=== PATIENT | female | born 1935 | race Caucasian/White ===

== ENCOUNTER → 2016-07-16 | Outpatient (CLI) | payer OTHER ==
[~2016-07-16] MED LIST: ALPR-411 PO; B-COTAB18; BIOT1CAP3; BUME0.5T3 PO; CHLO-274 PO; CRD2 PO; DICL1GEL28 TOP; DIGO0.1219 PO; LOPE2TAB74; LOSA100T65 PO; MULT-513 PO; RFM300 PO; SNG10 PO; TOPI100T34 PO; TOPI50TA16 PO; VTMD1000 PO; WARF-280 PO
--- NOTE | 2016-07-16 12:05 | DIAGNOSTIC IMAGING REPORT ---
MRI OF THE CERVICAL SPINE WITHOUT IV CONTRAST CLINICAL HISTORY: Neck pain and cervical radiculopathy. COMPARISON STUDY: No priors. TECHNIQUE: MRI of the cervical spine is performed utilizing various T1 and T2-weighted sequences in the axial and sagittal planes. IV contrast was not administered for this examination. FINDINGS: Cervical spine: Vertebral body height is maintained throughout the cervical spine. There is minimal anterolisthesis at C7-T1. Alignment is otherwise preserved. There is straightening of the cervical lordosis. The atlantodental articulation appears preserved. The spinous processes are intact as visualized. Small anterior osteophytes are seen at C5-C7. No destructive bony lesion is seen. Intervertebral discs: There is degenerative disc desiccation seen throughout the cervical spine. There is moderate loss of height at C5-C6 and C6-C7. Minimal fluid within the C3-C4 disc is likely on a degenerative basis. Spinal cord: The cervical spinal cord is normal in morphology and signal intensity. C2-C3: Mild facet arthropathy is of no consequence. The central canal is widely patent. C3-C4: Mild facet arthropathy is of no consequence. C4-C5: A posterior disc osteophyte complex abuts the ventral cord. Uncovertebral and facet arthropathy causes mild left neural foraminal stenosis. C5-C6: A posterior disc osteophyte complex abuts the ventral cord. Uncovertebral and facet arthropathy causes moderate bilateral neural foraminal stenosis. C6-C7: A posterior disc osteophyte complex is eccentric to the left and mildly effaces the ventral subarachnoid space. In conjunction with uncovertebral arthropathy, this causes moderate left-sided neural foraminal stenosis. The right neural foramen is clear. C7-T1: Unremarkable. Soft tissues: The prevertebral and paraspinous soft tissues are within normal limits. Brain parenchyma: Partially imaged brain parenchyma at the skull base is normal as visualized. IMPRESSION: 1. Cervical spondylosis as detailed above, greatest at C4-C5 and C5-C6. See discussion for detailed level by level analysis. 2. No destructive bony process is seen. 3. The cervical spinal cord is normal in morphology and signal intensity. Dictated: 07/16/2016 11:42 AM Transcribed: 07/16/2016 12:04 PM [place] Electronically signed by: Og Jett M.D. 07/16/2016 12:06 PM Dictated Date/Time: 07/16/2016 11:42 AM
== END | disposition home or self-care (01) ==
LOC: C.MRIBC 10:49
PROVIDERS: ATTEND Orthopaedic Surgery
DX: M54.12 Radiculopathy, cervical region (principal)